=== PATIENT | male | born 1960 | race Caucasian/White ===

== ENCOUNTER 2017-06-03 18:01 | Inpatient (IN) | payer OTHER ==
[2017-06-03] MEDS: SOD CHLORIDE 0.9% 1,000 ML IV (23:34)
[2017-06-04 00:03] LABS: ADD MAN DIFF? NO
[2017-06-04 00:09] LABS: BASOPHIL # 0.1 10^3/ul (0.0-0.1); BASOPHILS % 0.7 % (0.0-2.0); EOSINOPHILS # 0.2 10^3/ul (0.0-0.5); EOSINOPHILS % 1.5 % (0.0-7.0); HEMATOCRIT 37.9 % (42.0-52.0); HEMOGLOBIN 12.7 g/dl (14.0-18.0); LYMPHOCYTES # 1.9 10^3/ul (0.8-2.9); LYMPHOCYTES % 18.6 % (15.0-51.0); MEAN CORPUSCULAR HEMOGLOBIN 27.4 pg (29.0-33.0); MEAN CORPUSCULAR HGB CONC 33.5 g/dl (32.0-37.0); MEAN CORPUSCULAR VOLUME 81.9 fl (82.0-101.0); MEAN PLATELET VOLUME 11.6 fl (7.4-10.4); MONOCYTE # 0.7 10^3/ul (0.3-0.9); NEUTROPHIL # 7.4 10^3/ul (1.6-7.5); NEUTROPHILS % 71.8 % (39.0-77.0); PLATELET COUNT 270 10^3/UL (140-415); RED BLOOD COUNT 4.63 10^6/ul (4.70-6.10); RED CELL DISTRIBUTION WIDTH 12.4 % (11.5-14.5)
[2017-06-04 00:09] LABS: WHITE BLOOD COUNT 10.4 10^3/ul (4.8-10.8)
[2017-06-04 00:30] LABS: LACTIC ACID 1.7 mmol/L (0.5-2.0)
[2017-06-04 00:32] LABS: ALANINE AMINOTRANSFERASE 68 IU/L (13-69); ALBUMIN 4.8 g/dl (3.3-4.9); ALBUMIN/GLOBULIN RATIO 1.37; ALKALINE PHOSPHATASE 135 IU/L (42-121); ANION GAP 21 (8-16); ASPARTATE AMINO TRANSFERASE 26 IU/L (15-46); BILIRUBIN,INDIRECT 0.3 mg/dl (0-1.1); BILIRUBIN,TOTAL 0.3 mg/dl (0.2-1.3); BLOOD UREA NITROGEN 31 mg/dl (7-20); CALCIUM 10.7 mg/dl (8.4-10.2); CARBON DIOXIDE 24 mmol/L (21-31); CHLORIDE 96 mmol/L (97-110); CREATININE 2.44 mg/dl (0.61-1.24); LIPASE 496 U/L (23-300); POTASSIUM 4.9 mmol/L (3.5-5.1); SODIUM 136 mmol/L (135-144); TOTAL PROTEIN 8.3 g/dl (6.1-8.1)
[2017-06-04 00:44] LABS: GLUCOSE 566 mg/dl (70-220); TROPONIN-I < 0.012 ng/ml (0.00-0.12)
[2017-06-04 01:27] LABS: ADD UMIC YES; UR ASCORBIC ACID NEGATIVE (NEGATIVE); UR BILIRUBIN (Dip) NEGATIVE (NEGATIVE); UR BLOOD (Dip) 1+ mg/dL (NEGATIVE); UR CLARITY CLEAR (CLEAR); UR COLOR STRAW (YELLOW); UR GLUCOSE (Dip) 3+ mg/dL (NEGATIVE); UR KETONES (Dip) NEGATIVE (NEGATIVE); UR LEUKOCYTE ESTERASE (Dip) NEGATIVE Leu/ul (NEGATIVE); UR NITRITE (Dip) NEGATIVE (NEGATIVE); UR RBC 0 /HPF (0-5); UR SPECIFIC GRAVITY (Dip) 1.021 (1.003-1.030); UR TOTAL PROTEIN (Dip) 1+ mg/dl (NEGATIVE); UR UROBILINOGEN (Dip) NEGATIVE (NEGATIVE); UR WBC 0 /HPF (0-5)
[2017-06-04 04:18] LABS: LACTIC ACID 0.9 mmol/L (0.5-2.0)
[2017-06-04 06:03] LABS: LACTIC ACID 0.9 mmol/L (0.5-2.0)
[2017-06-04] MEDS: SOD CHLORIDE 0.9% 1,000 ML IV ×2 (06:58→16:58)
[2017-06-04] MEDS ORDERED: ALBUTEROL/IPRATROPIUM (NEB) 3 ML AMP HHN (07:00)
[2017-06-04] MEDS ORDERED: NACL 0.9% 3 ML SYG IV (07:00)
[2017-06-04] MEDS ORDERED: ACETAMINOPHEN 325 MG TAB PO (07:00)
[2017-06-04] MEDS ORDERED: ONDANSETRON 4 MG INJ IV (07:00)
[2017-06-04] MEDS ORDERED: morphine 2 MG INJ IV (07:00)
[2017-06-04] MEDS ORDERED: DEXTROSE 50% 50 ML SYRINGE IV ×2 (08:00)
[2017-06-04] MEDS ORDERED: GLUCOSE GEL 15 GRAM TUBE BUCCAL (08:00)
[2017-06-04] MEDS ORDERED: GLUCOSE GEL 15 GRAM TUBE PO ×2 (08:00)
[2017-06-04] MEDS ORDERED: GLUCAGON 1 MG INJ IM (08:00)
[2017-06-04] MEDS: INSULIN ASPART [NOVOLOG] 3 ML PEN SC ×6 (10:15→20:42)
[2017-06-04] MEDS: LINAGLIPTIN 5 MG TABLET PO (10:16)
[2017-06-04] MEDS: ASPIRIN (EC) 81 MG TAB PO (10:16)
[2017-06-04] MEDS: HEPARIN 5,000 UNIT/0.5 ML VIAL SC ×2 (10:16→20:44)
[2017-06-04] MEDS: ATORVASTATIN 40 MG TAB PO (20:37)
[2017-06-04] MEDS: AMLODIPINE 5 MG TAB PO (20:37)
[2017-06-04] MEDS: INSULIN GLARGINE [LANtus] 3 ML PEN SC (20:43)
[2017-06-05] MEDS: ACCU-CHEK XX (02:53)
[2017-06-05] MEDS: SOD CHLORIDE 0.9% 1,000 ML IV (02:56)
[2017-06-05 05:51] LABS: ADD MAN DIFF? NO
[2017-06-05 05:59] LABS: BASOPHILS % 0.4 % (0.0-2.0); EOSINOPHILS # 0.2 10^3/ul (0.0-0.5); EOSINOPHILS % 1.9 % (0.0-7.0); HEMATOCRIT 32.4 % (42.0-52.0); HEMOGLOBIN 11.1 g/dl (14.0-18.0); LYMPHOCYTES # 2.4 10^3/ul (0.8-2.9); MEAN CORPUSCULAR HEMOGLOBIN 28.2 pg (29.0-33.0); MEAN CORPUSCULAR HGB CONC 34.3 g/dl (32.0-37.0); MEAN CORPUSCULAR VOLUME 82.4 fl (82.0-101.0); MEAN PLATELET VOLUME 11.5 fl (7.4-10.4); MONOCYTE # 0.7 10^3/ul (0.3-0.9); MONOCYTES % 7.7 % (0.0-11.0); NEUTROPHIL # 5.9 10^3/ul (1.6-7.5); NEUTROPHILS % 63.7 % (39.0-77.0); PLATELET COUNT 245 10^3/UL (140-415); RED BLOOD COUNT 3.93 10^6/ul (4.70-6.10); RED CELL DISTRIBUTION WIDTH 12.4 % (11.5-14.5)
[2017-06-05 05:59] LABS: WHITE BLOOD COUNT 9.3 10^3/ul (4.8-10.8)
[2017-06-05 06:44] LABS: ALANINE AMINOTRANSFERASE 50 IU/L (13-69); ALBUMIN 3.8 g/dl (3.3-4.9); ALBUMIN/GLOBULIN RATIO 1.26; ALKALINE PHOSPHATASE 92 IU/L (42-121); ANION GAP 12 (8-16); ASPARTATE AMINO TRANSFERASE 24 IU/L (15-46); BILIRUBIN,INDIRECT 0.3 mg/dl (0-1.1); BILIRUBIN,TOTAL 0.3 mg/dl (0.2-1.3); BLOOD UREA NITROGEN 30 mg/dl (7-20); CALCIUM 10.3 mg/dl (8.4-10.2); CARBON DIOXIDE 27 mmol/L (21-31); CHLORIDE 107 mmol/L (97-110); CREATININE 1.97 mg/dl (0.61-1.24); GLUCOSE 78 mg/dl (70-220); MAGNESIUM 2.3 mg/dl (1.7-2.5); PHOSPHORUS 3.9 mg/dl (2.5-4.9); POTASSIUM 4.3 mmol/L (3.5-5.1); SODIUM 142 mmol/L (135-144); TOTAL PROTEIN 6.8 g/dl (6.1-8.1)
[2017-06-05 06:44] LABS: LIPASE 374 U/L (23-300)
[2017-06-05] MEDS: INSULIN ASPART [NOVOLOG] 3 ML PEN SC ×6 (07:50→21:00)
[2017-06-05] MEDS: ASPIRIN (EC) 81 MG TAB PO (09:50)
[2017-06-05] MEDS: LINAGLIPTIN 5 MG TABLET PO (09:50)
[2017-06-05] MEDS: HEPARIN 5,000 UNIT/0.5 ML VIAL SC ×2 (09:58→20:31)
[2017-06-05] MEDS: AMLODIPINE 5 MG TAB PO (20:23)
[2017-06-05] MEDS: ATORVASTATIN 40 MG TAB PO (20:23)
[2017-06-05] MEDS: INSULIN GLARGINE [LANtus] 3 ML PEN SC (21:07)
[2017-06-06] MEDS: ACCU-CHEK XX (02:00)
[2017-06-06 05:22] LABS: ADD MAN DIFF? NO
[2017-06-06 05:30] LABS: BASOPHILS % 0.4 % (0.0-2.0); EOSINOPHILS # 0.2 10^3/ul (0.0-0.5); EOSINOPHILS % 2.9 % (0.0-7.0); HEMATOCRIT 31.7 % (42.0-52.0); HEMOGLOBIN 10.7 g/dl (14.0-18.0); LYMPHOCYTES # 1.9 10^3/ul (0.8-2.9); LYMPHOCYTES % 26.9 % (15.0-51.0); MEAN CORPUSCULAR HEMOGLOBIN 27.7 pg (29.0-33.0); MEAN CORPUSCULAR HGB CONC 33.8 g/dl (32.0-37.0); MEAN CORPUSCULAR VOLUME 82.1 fl (82.0-101.0); MEAN PLATELET VOLUME 11.3 fl (7.4-10.4); MONOCYTE # 0.5 10^3/ul (0.3-0.9); MONOCYTES % 7.6 % (0.0-11.0); NEUTROPHIL # 4.4 10^3/ul (1.6-7.5); NEUTROPHILS % 61.9 % (39.0-77.0); PLATELET COUNT 229 10^3/UL (140-415); RED BLOOD COUNT 3.86 10^6/ul (4.70-6.10); RED CELL DISTRIBUTION WIDTH 12.4 % (11.5-14.5)
[2017-06-06 05:30] LABS: WHITE BLOOD COUNT 7.1 10^3/ul (4.8-10.8)
[2017-06-06 05:45] LABS: LIPASE 378 U/L (23-300)
[2017-06-06 05:46] LABS: ANION GAP 13 (8-16); BLOOD UREA NITROGEN 24 mg/dl (7-20); CARBON DIOXIDE 27 mmol/L (21-31); CHLORIDE 106 mmol/L (97-110); CREATININE 1.68 mg/dl (0.61-1.24); GLUCOSE 166 mg/dl (70-220); POTASSIUM 4.4 mmol/L (3.5-5.1); SODIUM 142 mmol/L (135-144)
[2017-06-06] MEDS: LINAGLIPTIN 5 MG TABLET PO (08:22)
[2017-06-06] MEDS: ASPIRIN (EC) 81 MG TAB PO (08:22)
[2017-06-06] MEDS: HEPARIN 5,000 UNIT/0.5 ML VIAL SC ×2 (08:27→21:15)
[2017-06-06] MEDS: INSULIN ASPART [NOVOLOG] 3 ML PEN SC ×7 (09:03→21:00)
[2017-06-06] MEDS: SOD CHLORIDE 0.45% 1,000 ML IV (13:44)
[2017-06-06] MEDS: ATORVASTATIN 40 MG TAB PO (21:07)
[2017-06-06] MEDS: AMLODIPINE 5 MG TAB PO (21:07)
[2017-06-06] MEDS: INSULIN GLARGINE [LANtus] 3 ML PEN SC (21:17)
[2017-06-07] MEDS: ACCU-CHEK XX (02:44)
[2017-06-07] MEDS: SOD CHLORIDE 0.45% 1,000 ML IV ×2 (02:44→16:36)
[2017-06-07 05:51] LABS: ADD MAN DIFF? NO
[2017-06-07 06:08] LABS: BASOPHILS % 0.4 % (0.0-2.0); EOSINOPHILS # 0.2 10^3/ul (0.0-0.5); EOSINOPHILS % 2.8 % (0.0-7.0); HEMATOCRIT 33.3 % (42.0-52.0); HEMOGLOBIN 10.9 g/dl (14.0-18.0); LYMPHOCYTES % 28.9 % (15.0-51.0); MEAN CORPUSCULAR HEMOGLOBIN 27.3 pg (29.0-33.0); MEAN CORPUSCULAR HGB CONC 32.7 g/dl (32.0-37.0); MEAN CORPUSCULAR VOLUME 83.5 fl (82.0-101.0); MEAN PLATELET VOLUME 11.6 fl (7.4-10.4); MONOCYTE # 0.6 10^3/ul (0.3-0.9); NEUTROPHIL # 4.2 10^3/ul (1.6-7.5); NEUTROPHILS % 59.3 % (39.0-77.0); PLATELET COUNT 242 10^3/UL (140-415); RED BLOOD COUNT 3.99 10^6/ul (4.70-6.10); RED CELL DISTRIBUTION WIDTH 12.5 % (11.5-14.5)
[2017-06-07 06:11] LABS: CHOL/HDL RATIO 1.8 RATIO; HDL CHOLESTEROL 84 mg/dl (28-71); LDL CHOLESTEROL,CALCULATED 58 mg/dl; TRIGLYCERIDES 78 mg/dl (0-149)
[2017-06-07 06:11] LABS: CHOLESTEROL 158 mg/dl (100-200)
[2017-06-07 06:14] LABS: ANION GAP 14 (8-16); BLOOD UREA NITROGEN 24 mg/dl (7-20); CALCIUM 9.9 mg/dl (8.4-10.2); CARBON DIOXIDE 29 mmol/L (21-31); CHLORIDE 107 mmol/L (97-110); CREATININE 1.78 mg/dl (0.61-1.24); GLUCOSE 81 mg/dl (70-220); LIPASE 354 U/L (23-300); POTASSIUM 4.5 mmol/L (3.5-5.1); SODIUM 145 mmol/L (135-144)
[2017-06-07] MEDS: INSULIN ASPART [NOVOLOG] 3 ML PEN SC ×8 (07:50→21:00)
[2017-06-07] MEDS: LINAGLIPTIN 5 MG TABLET PO (08:30)
[2017-06-07] MEDS: ASPIRIN (EC) 81 MG TAB PO (08:30)
[2017-06-07] MEDS: HEPARIN 5,000 UNIT/0.5 ML VIAL SC ×2 (08:38→21:05)
[2017-06-07] MEDS: INSULIN GLARGINE [LANtus] 3 ML PEN SC (21:04)
[2017-06-07] MEDS: ATORVASTATIN 40 MG TAB PO (21:06)
[2017-06-07] MEDS: AMLODIPINE 5 MG TAB PO (21:06)
[2017-06-08] MEDS: ACCU-CHEK XX (02:00)
[2017-06-08 05:37] LABS: ADD MAN DIFF? NO
[2017-06-08 05:45] LABS: WHITE BLOOD COUNT 6.9 10^3/ul (4.8-10.8)
[2017-06-08 05:45] LABS: BASOPHILS % 0.6 % (0.0-2.0); EOSINOPHILS # 0.2 10^3/ul (0.0-0.5); EOSINOPHILS % 2.9 % (0.0-7.0); HEMATOCRIT 33.6 % (42.0-52.0); HEMOGLOBIN 10.9 g/dl (14.0-18.0); LYMPHOCYTES # 1.8 10^3/ul (0.8-2.9); LYMPHOCYTES % 26.4 % (15.0-51.0); MEAN CORPUSCULAR HEMOGLOBIN 27.4 pg (29.0-33.0); MEAN CORPUSCULAR HGB CONC 32.4 g/dl (32.0-37.0); MEAN CORPUSCULAR VOLUME 84.4 fl (82.0-101.0); MEAN PLATELET VOLUME 11.4 fl (7.4-10.4); MONOCYTE # 0.6 10^3/ul (0.3-0.9); MONOCYTES % 8.6 % (0.0-11.0); NEUTROPHIL # 4.2 10^3/ul (1.6-7.5); NEUTROPHILS % 61.1 % (39.0-77.0); PLATELET COUNT 225 10^3/UL (140-415); RED BLOOD COUNT 3.98 10^6/ul (4.70-6.10); RED CELL DISTRIBUTION WIDTH 12.4 % (11.5-14.5)
[2017-06-08 06:11] LABS: ANION GAP 15 (8-16); BLOOD UREA NITROGEN 25 mg/dl (7-20); CALCIUM 9.8 mg/dl (8.4-10.2); CARBON DIOXIDE 25 mmol/L (21-31); CHLORIDE 108 mmol/L (97-110); CREATININE 1.67 mg/dl (0.61-1.24); GLUCOSE 237 mg/dl (70-220); POTASSIUM 4.6 mmol/L (3.5-5.1); SODIUM 143 mmol/L (135-144)
[2017-06-08] MEDS: SOD CHLORIDE 0.45% 1,000 ML IV (06:34)
[2017-06-08] MEDS: ASPIRIN (EC) 81 MG TAB PO (08:16)
[2017-06-08] MEDS: LINAGLIPTIN 5 MG TABLET PO (08:16)
[2017-06-08] MEDS: HEPARIN 5,000 UNIT/0.5 ML VIAL SC ×2 (08:20→20:50)
[2017-06-08] MEDS: INSULIN ASPART [NOVOLOG] 3 ML PEN SC ×7 (08:21→21:00)
[2017-06-08] MEDS: AMLODIPINE 5 MG TAB PO (20:47)
[2017-06-08] MEDS: ATORVASTATIN 40 MG TAB PO (20:47)
[2017-06-08] MEDS: INSULIN GLARGINE [LANtus] 3 ML PEN SC (20:50)
[2017-06-09] MEDS: ACCU-CHEK XX (02:00)
[2017-06-09 06:31] LABS: ANION GAP 12 (8-16); BLOOD UREA NITROGEN 21 mg/dl (7-20); CALCIUM 9.8 mg/dl (8.4-10.2); CARBON DIOXIDE 27 mmol/L (21-31); CHLORIDE 109 mmol/L (97-110); CREATININE 1.65 mg/dl (0.61-1.24); GLUCOSE 211 mg/dl (70-220); POTASSIUM 4.4 mmol/L (3.5-5.1); SODIUM 144 mmol/L (135-144)
[2017-06-09] MEDS: ASPIRIN (EC) 81 MG TAB PO (08:31)
[2017-06-09] MEDS: LINAGLIPTIN 5 MG TABLET PO (08:31)
[2017-06-09] MEDS: INSULIN ASPART [NOVOLOG] 3 ML PEN SC ×7 (08:37→20:38)
[2017-06-09] MEDS: HEPARIN 5,000 UNIT/0.5 ML VIAL SC ×2 (08:37→20:35)
[2017-06-09] MEDS: ATORVASTATIN 40 MG TAB PO (20:26)
[2017-06-09] MEDS: AMLODIPINE 5 MG TAB PO (20:26)
[2017-06-09] MEDS: INSULIN GLARGINE [LANtus] 3 ML PEN SC (20:36)
[2017-06-10] MEDS: ACCU-CHEK XX (01:59)
[2017-06-10 05:12] LABS: ADD MAN DIFF? NO
[2017-06-10 05:21] LABS: WHITE BLOOD COUNT 7.6 10^3/ul (4.8-10.8)
[2017-06-10 05:21] LABS: BASOPHILS % 0.5 % (0.0-2.0); EOSINOPHILS # 0.2 10^3/ul (0.0-0.5); EOSINOPHILS % 2.6 % (0.0-7.0); HEMATOCRIT 31.7 % (42.0-52.0); HEMOGLOBIN 10.4 g/dl (14.0-18.0); LYMPHOCYTES % 26.9 % (15.0-51.0); MEAN CORPUSCULAR HEMOGLOBIN 27.6 pg (29.0-33.0); MEAN CORPUSCULAR HGB CONC 32.8 g/dl (32.0-37.0); MEAN CORPUSCULAR VOLUME 84.1 fl (82.0-101.0); MONOCYTE # 0.6 10^3/ul (0.3-0.9); MONOCYTES % 8.2 % (0.0-11.0); NEUTROPHIL # 4.6 10^3/ul (1.6-7.5); NEUTROPHILS % 61.3 % (39.0-77.0); PLATELET COUNT 229 10^3/UL (140-415); RED BLOOD COUNT 3.77 10^6/ul (4.70-6.10); RED CELL DISTRIBUTION WIDTH 12.6 % (11.5-14.5)
[2017-06-10 05:48] LABS: ANION GAP 12 (8-16); BLOOD UREA NITROGEN 23 mg/dl (7-20); CALCIUM 9.5 mg/dl (8.4-10.2); CARBON DIOXIDE 26 mmol/L (21-31); CHLORIDE 109 mmol/L (97-110); CREATININE 1.72 mg/dl (0.61-1.24); GLUCOSE 137 mg/dl (70-220); POTASSIUM 4.4 mmol/L (3.5-5.1); SODIUM 143 mmol/L (135-144)
[2017-06-10] MEDS: LINAGLIPTIN 5 MG TABLET PO (08:55)
[2017-06-10] MEDS: ASPIRIN (EC) 81 MG TAB PO (08:56)
[2017-06-10] MEDS: INSULIN ASPART [NOVOLOG] 3 ML PEN SC ×7 (08:57→20:31)
[2017-06-10] MEDS: HEPARIN 5,000 UNIT/0.5 ML VIAL SC ×2 (08:58→20:26)
[2017-06-10] MEDS: ATORVASTATIN 40 MG TAB PO (20:22)
[2017-06-10] MEDS: AMLODIPINE 5 MG TAB PO (20:22)
[2017-06-10] MEDS: INSULIN GLARGINE [LANtus] 3 ML PEN SC (20:27)
[2017-06-11] MEDS: ACCU-CHEK XX (02:00)
[2017-06-11 05:39] LABS: ANION GAP 11 (8-16); BLOOD UREA NITROGEN 31 mg/dl (7-20); CALCIUM 9.5 mg/dl (8.4-10.2); CARBON DIOXIDE 27 mmol/L (21-31); CHLORIDE 108 mmol/L (97-110); GLUCOSE 285 mg/dl (70-220); POTASSIUM 4.3 mmol/L (3.5-5.1); SODIUM 142 mmol/L (135-144)
[2017-06-11] MEDS: ASPIRIN (EC) 81 MG TAB PO (09:31)
[2017-06-11] MEDS: LINAGLIPTIN 5 MG TABLET PO (09:31)
[2017-06-11] MEDS: INSULIN ASPART [NOVOLOG] 3 ML PEN SC ×6 (09:33→17:47)
[2017-06-11] MEDS: HEPARIN 5,000 UNIT/0.5 ML VIAL SC (09:38)
[2017-06-11] MEDS ORDERED: INSULIN GLARGINE [LANtus] 3 ML PEN SC (20:00)
== END 2017-06-11 20:00 | DRG 637 ==
LOC: E/R 18:01 → MS1 06-04 02:06
PROVIDERS: Internal Medicine
DX: E11.65 Type 2 diabetes mellitus with hyperglycemia (principal); K85.90 Acute pancreatitis without necrosis or infection, unspecified; N17.9 Acute kidney failure, unspecified; E11.22 Type 2 diabetes mellitus with diabetic chronic kidney disease; I69.354 Hemiplegia and hemiparesis following cerebral infarction affecting left non-dominant side; E78.5 Hyperlipidemia, unspecified; R32 Unspecified urinary incontinence; I12.9 Hypertensive chronic kidney disease with stage 1 through stage 4 chronic kidney disease, or unspecified chronic kidney disease; N18.9 Chronic kidney disease, unspecified
CPT/HCPCS: 36415; 71045; 74150; 76705; 76775; 80048; 80053; 80061; 81001; 82962; 83605; 83690; 83735; 84100; 84484; 85025; 93005; 96360; 96361; 97110; 97116; 97162; 97530; 99285-25